=== PATIENT | male | born 1960 | race Caucasian/White ===

== ENCOUNTER 2023-02-17 05:24 | Day surgery (SDC) | payer MEDICARE, OTHER ==
[~2023-02-17 05:24] MED LIST: CYCLOPENTOLATE HCL 1% 2 ML OPHTHALMIC SOLUTION ONE; KETOROLAC TROMETHAMINE 0.5% 5 ML OPHTHALMIC SOLUTION ONE; MOXIFLOXACIN HCL 0.5% 3 ML OPHTHALMIC SOLUTION ONE; PHENYLEPHRINE HCL 2.5% 2 ML OPHTHALMIC SOLUTION ONE; RINGERS SOLUTION,LACTATED 0 ML IV ONE; TETRACAINE HCL/PF 0.5% 4 ML OPHTHALMIC SOLUTION ONE; TROPICAMIDE 1% 2 ML OPHTHALMIC SOLUTION ONE
[2023-02-17] MEDS ORDERED: CLON1PAT12 TD (05:50)
[2023-02-17] MEDS ORDERED: METF-1211 PO (05:50)
[2023-02-17] MEDS ORDERED: ALBU18HF12 IH (05:50)
[2023-02-17] MEDS ORDERED: LUTE1CAP5 PO (05:50)
[2023-02-17] MEDS ORDERED: NYST30CR9 TP (05:50)
[2023-02-17] MEDS ORDERED: FINA-27 PO (05:50)
[2023-02-17] MEDS ORDERED: POTA-206 PO (05:50)
[2023-02-17] MEDS ORDERED: CHL25 PO (05:50)
[2023-02-17] MEDS ORDERED: FURO40 PO (05:50)
[2023-02-17] MEDS ORDERED: OMEP20 PO (05:50)
[2023-02-17] MEDS ORDERED: DOXA2TAB86 PO (05:50)
[2023-02-17] MEDS ORDERED: ATEN100T92 PO (05:50)
[2023-02-17] MEDS ORDERED: DICL100G60 TP (05:50)
[2023-02-17] MEDS ORDERED: MELA5TAB40 PO (05:50)
[2023-02-17] MEDS ORDERED: LEVO100 PO (05:50)
[2023-02-17] MEDS ORDERED: AMLO-258 PO (05:50)
[2023-02-17] MEDS ORDERED: SIMV-260 PO (05:50)
[2023-02-17] MEDS ORDERED: RINGERS SOLUTION,LACTATED 500 ML IV ONE (06:00)
[2023-02-17] MEDS ORDERED: PrednisoLONE ACETATE 1% 5 ML OPHTHALMIC SUSPENSION ONE (06:25)
[2023-02-17] MEDS ORDERED: TROPICAMIDE 1% 2 ML OPHTHALMIC SOLUTION OD SCH (06:30)
[2023-02-17] MEDS ORDERED: PROPARACAINE HCL 0.5% 15 ML OPHTHALMIC SOLUTION OD ONE (06:30)
[2023-02-17] MEDS ORDERED: TETRACAINE HCL/PF 0.5% 4 ML OPHTHALMIC SOLUTION OD ONE (06:30)
[2023-02-17] MEDS ORDERED: CYCLOPENTOLATE HCL 1% 2 ML OPHTHALMIC SOLUTION OD SCH (06:30)
[2023-02-17] MEDS ORDERED: TETRACAINE HCL/PF 0.5% 4 ML OPHTHALMIC SOLUTION OD SCH (06:30)
[2023-02-17] MEDS ORDERED: KETOROLAC TROMETHAMINE 0.5% 5 ML OPHTHALMIC SOLUTION OD SCH (06:30)
[2023-02-17] MEDS ORDERED: PHENYLEPHRINE HCL 2.5% 2 ML OPHTHALMIC SOLUTION OD SCH (06:30)
[2023-02-17] MEDS ORDERED: MOXIFLOXACIN HCL 0.5% 3 ML OPHTHALMIC SOLUTION OD SCH (06:30)
[2023-02-17 07:31] LABS: GLUCOMETER DEV NAME(LOC) SDS.; GLUCOSE,POINT OF CARE 94 MG/DL (70-110)
== END 2023-02-18 07:10 | disposition home or self-care (01) ==
LOC: SURGERY 05:24
PROVIDERS: ATTEND Ophthalmology
DX: H25.11 Age-related nuclear cataract, right eye (principal); Z53.8 Procedure and treatment not carried out for other reasons
CPT/HCPCS: 82962; 93005; J7120